=== PATIENT | female | born 1995 | race Caucasian/White ===

== ENCOUNTER 2019-11-12 13:34 | Emergency (ER) | payer SELFPAY ==
[~2019-11-12] VITALS: Ht 167.6 cm; Wt 132.0 kg
[2019-11-12] MEDS ORDERED: KETOROLAC 60MG/2ML VIAL IM STA (14:39)
[2019-11-12 16:56] VITALS: BP 118/66
== END 2019-11-12 17:01 | disposition home or self-care (01) ==
LOC: ER 13:34
DX: R51 Headache (principal); Z90.49 Acquired absence of other specified parts of digestive tract
CPT/HCPCS: 70450; 96372; 99284; J1885